=== PATIENT | male | born 1980 | race Asian ===

== ENCOUNTER 2022-04-15 23:10 | Emergency (ER) | payer OTHER ==
[~2022-04-15] VITALS: Ht 185.4 cm; Wt 72.7 kg
[2022-04-15 23:12] VITALS: BP 140/80
[2022-04-15] MEDS ORDERED: LISI-892 PO (23:14)
[2022-04-15] MEDS ORDERED: CEPHALEXIN MONOHYDRATE 500 MG CAPSULE PO ONE (23:30)
== END 2022-04-15 23:51 | disposition home or self-care (01) ==
LOC: EMS 23:16
DX: L03.116 Cellulitis of left lower limb (principal); I10 Essential (primary) hypertension; Z88.0 Allergy status to penicillin; Z79.899 Other long term (current) drug therapy
CPT/HCPCS: 99283